=== PATIENT | female | born 2000 | race Caucasian/White ===

== ENCOUNTER 2024-02-13 13:15 | Outpatient (CLI) | payer BC, SELFPAY ==
[2024-02-13 14:10] LABS: Beta HCG Quantitative < 2.39 mIU/ML
[2024-02-18 14:11] LABS: Progesterone <0.2 ng/mL (***)
== END 2024-02-13 13:16 | disposition home or self-care (01) ==
PROVIDERS: PCP Pediatrics; Visit Provider Obstetrics & Gynecology
DX: Z32.00 Encounter for pregnancy test, result unknown (principal)
CPT/HCPCS: 36415; 84144; 84702